=== PATIENT | male | born 1955 | race Hispanic/Latino ===

== ENCOUNTER 2017-10-10 14:09 | Emergency (ER) | payer OTHER ==
[~2017-10-10] VITALS: Ht 162.6 cm; Wt 97.5 kg
[2017-10-10] MEDS ORDERED: HYDROCODONE/APAP 10MG-325MG TAB PO ONE (14:30)
--- NOTE | 2017-10-10 15:21 | Diagnostic Imaging Report ---
PROCEDURE:X-RAY LEFT SHOULDER, COMPLETE COMPARISON:None. INDICATIONS:LEFT SHOULDER PAIN FINDINGS: There are no fractures, lytic or blastic lesions. Anterior and inferior displacement of the humeral head in relation to the glenoid. The bones are well-mineralized. The soft-tissues are unremarkable. CONCLUSION: Anterior dislocation of the left shoulder. Dictated by: Peng Hernández M.D. on 10/10/2017 at 15:30 Electronically approved by: Peng Hernández M.D. on 10/10/2017 at 15:30
--- NOTE | 2017-10-10 15:33 | Diagnostic Imaging Report ---
PROCEDURE:X-RAY LEFT HUMERUS, TWO OR MORE VIEWS COMPARISON:None. INDICATIONS:LEFT SHOULDER PAIN FINDINGS: There are no fractures lytic or blastic lesions. The bones are well-mineralized. The soft-tissues are unremarkable. CONCLUSION: No evidence of left humeral fracture. Anterior left shoulder dislocation. Dictated by: Peng Hernández M.D. on 10/10/2017 at 15:42 Electronically approved by: Pegn Hernández M.D. on 10/10/2017 at 15:42
--- NOTE | 2017-10-10 16:17 | Diagnostic Imaging Report ---
PROCEDURE:X-RAY LEFT SHOULDER, LIMITED COMPARISON:Same day at 1448 hours . INDICATIONS:POST REDUCTION LEFT SHOULDER TODAY FINDINGS: See below. CONCLUSION: Interval reduction of the previously seen anterior left shoulder dislocation. The humeral head and glenoid are in anatomic articulation. Dictated by: Peng Hernández M.D. on 10/10/2017 at 16:26 Electronically approved by: Peng Hernández M.D. on 10/10/2017 at 16:26
[2017-10-10 16:46] VITALS: BP 153/76
== END 2017-10-10 16:55 | disposition home or self-care (01) ==
LOC: ER 14:09
DX: S43.015A Anterior dislocation of left humerus, initial encounter (principal); M25.512 Pain in left shoulder; Y93.89 Activity, other specified; Y99.0 Civilian activity done for income or pay
CPT/HCPCS: 73020; 99283